=== PATIENT | female | born 1935 | race Caucasian/White ===

== ENCOUNTER → 2017-08-12 | Outpatient (CLI) | payer OTHER ==
[2017-08-12 06:46] LABS: Urine Bacteria None Seen /hpf (None Seen)
[2017-08-12 06:50] LABS: Basophils # (auto) 0.1 uL; Basophils % (auto) 1.4 % (0.0-2.0); Eosinophils # (auto) 0.3 uL; Eosinophils % (auto) 4.9 % (0.0-7.0); Hematocrit 49.5 % (36.0-46.0); Lymphocytes # (auto) 1.8 uL; Lymphocytes % (auto) 26.1 % (10.0-50.0); Mean Corpuscular Hemoglobin 30.9 pg (28.0-32.0); Mean Corpuscular Hgb Conc. 32.4 g/dL (32.0-36.0); Mean Corpuscular Volume 95.3 fL (80.0-100.0); Monocytes # (auto) 0.9 uL; Monocytes % (auto) 12.4 % (0.0-12.0); Neutrophils # (auto) 3.8 uL; Neutrophils % (auto) 55.2 % (37.0-80.0); Nucleated Red Blood Cells % 0.1 %; Platelet Count (auto) 190 10^3/uL (140-450); Red Blood Cells 5.19 10^6/uL (4.0-5.20); Red Cell Distribution Width 13.9 % (11.8-14.3); White Blood Cell 6.9 10^3/uL (4.4-10.8)
[2017-08-12 06:57] LABS: Urine Blood Normal /uL (Negative); Urine Specific Gravity 1.016 (1.001-1.035)
[2017-08-12 06:58] LABS: Urine WBC <1 /hpf (0 - 5)
[2017-08-12 06:59] LABS: Urine Mucus FEW (None Seen)
[2017-08-12 07:13] LABS: Albumin 3.8 g/dL (3.4-5.0); BUN/Creatinine Ratio 22.9; Bilirubin, Total 0.6 mg/dL (0.2-1.0); Potassium 3.7 mmol/L (3.5-5.1); Total Protein 7.1 g/dL (6.4-8.2)
== END | disposition home or self-care (01) ==
LOC: LAB 06:30
PROVIDERS: ATTEND Family Medicine
DX: E78.5 Hyperlipidemia, unspecified (principal)
CPT/HCPCS: 36415; 80053; 80061; 81001; 84443; 85025

== ENCOUNTER → 2018-04-23 | Outpatient (CLI) | payer OTHER ==
[2018-04-23 08:14] LABS: Basophils # (auto) 0.1 uL; Basophils % (auto) 1.3 % (0.0-2.0); Eosinophils # (auto) 0.3 uL; Eosinophils % (auto) 5.2 % (0.0-7.0); Hematocrit 49.5 % (36.0-46.0); Hemoglobin 16.4 g/dL (12.2-16.2); Lymphocytes # (auto) 1.4 uL; Lymphocytes % (auto) 23.1 % (10.0-50.0); Mean Corpuscular Hemoglobin 31.4 pg (28.0-32.0); Mean Corpuscular Hgb Conc. 33.2 g/dL (32.0-36.0); Mean Corpuscular Volume 94.4 fL (80.0-100.0); Monocytes # (auto) 0.7 uL; Monocytes % (auto) 11.7 % (0.0-12.0); Neutrophils # (auto) 3.4 uL; Neutrophils % (auto) 58.7 % (37.0-80.0); Nucleated Red Blood Cells % 0.1 %; Platelet Count (auto) 170 10^3/uL (140-450); Red Blood Cells 5.24 10^6/uL (4.0-5.20); Red Cell Distribution Width 14.1 % (11.8-14.3); White Blood Cell 5.9 10^3/uL (4.4-10.8)
[2018-04-23 08:51] LABS: Albumin 3.5 g/dL (3.4-5.0); BUN/Creatinine Ratio 15.2; Bilirubin, Total 0.7 mg/dL (0.2-1.0); Calcium 9.2 mg/dL (8.5-10.1); Potassium 3.3 mmol/L (3.5-5.1)
== END | disposition home or self-care (01) ==
LOC: LAB 07:18
PROVIDERS: ATTEND Nurse Practitioner
DX: E78.5 Hyperlipidemia, unspecified (principal); E55.9 Vitamin D deficiency, unspecified
CPT/HCPCS: 36415; 80053; 80061; 82306; 83036; 84443; 85025

== ENCOUNTER → 2018-10-08 | Outpatient (CLI) | payer OTHER ==
[2018-10-08 07:52] LABS: Basophils # (auto) 0.1 uL; Basophils % (auto) 1.6 % (0.0-2.0); Eosinophils # (auto) 0.3 uL; Eosinophils % (auto) 5.6 % (0.0-7.0); Hematocrit 48.9 % (36.0-46.0); Hemoglobin 16.2 g/dL (12.2-16.2); Lymphocytes # (auto) 1.3 uL; Lymphocytes % (auto) 23.9 % (10.0-50.0); Mean Corpuscular Hemoglobin 30.9 pg (28.0-32.0); Mean Corpuscular Hgb Conc. 33.2 g/dL (32.0-36.0); Mean Corpuscular Volume 93.3 fL (80.0-100.0); Monocytes # (auto) 0.6 uL; Monocytes % (auto) 11.4 % (0.0-12.0); Neutrophils # (auto) 3.1 uL; Neutrophils % (auto) 57.5 % (37.0-80.0); Platelet Count (auto) 168 10^3/uL (140-450); Red Blood Cells 5.24 10^6/uL (4.0-5.20); Red Cell Distribution Width 14.2 % (11.8-14.3); White Blood Cell 5.4 10^3/uL (4.4-10.8)
[2018-10-08 08:16] LABS: Albumin 3.4 g/dL (3.4-5.0); Potassium 3.4 mmol/L (3.5-5.1)
[2018-10-08 08:21] LABS: BUN/Creatinine Ratio 16.7; Bilirubin, Total 0.9 mg/dL (0.2-1.0); Total Protein 6.9 g/dL (6.4-8.2)
[2018-10-09 09:02] LABS: Urine Bacteria NONE SEEN /hpf (None Seen); Urine Blood Negative /uL (Negative); Urine Specific Gravity 1.014 (1.001-1.035); Urine WBC 14 /hpf (0 - 5)
== END | disposition home or self-care (01) ==
LOC: LAB 07:09
PROVIDERS: ATTEND Nurse Practitioner
DX: E78.5 Hyperlipidemia, unspecified (principal)
CPT/HCPCS: 36415; 80053; 80061; 81001; 83036; 84443; 85025

== ENCOUNTER → 2019-01-20 | Outpatient (CLI) | payer OTHER ==
[2019-01-20 08:13] LABS: Basophils # (auto) 0.1 uL; Basophils % (auto) 0.8 % (0.0-2.0); Eosinophils # (auto) 0.2 uL; Eosinophils % (auto) 2.3 % (0.0-7.0); Hematocrit 48.3 % (36.0-46.0); Hemoglobin 16.1 g/dL (12.2-16.2); Lymphocytes # (auto) 1.5 uL; Lymphocytes % (auto) 21.9 % (10.0-50.0); Mean Corpuscular Hgb Conc. 33.3 g/dL (32.0-36.0); Mean Corpuscular Volume 93.1 fL (80.0-100.0); Monocytes # (auto) 0.9 uL; Monocytes % (auto) 12.3 % (0.0-12.0); Neutrophils # (auto) 4.3 uL; Neutrophils % (auto) 62.7 % (37.0-80.0); Nucleated Red Blood Cells % 0.1 %; Platelet Count (auto) 152 10^3/uL (140-450); Red Blood Cells 5.19 10^6/uL (4.0-5.20); Red Cell Distribution Width 14.4 % (11.8-14.3); White Blood Cell 6.9 10^3/uL (4.4-10.8)
[2019-01-20 08:35] LABS: Urine Bacteria NONE SEEN /hpf (None Seen); Urine Blood Negative /uL (Negative); Urine Hyaline Cast FEW /lpf (0 - 2); Urine Specific Gravity 1.009 (1.001-1.035); Urine WBC 11 /hpf (0 - 5)
[2019-01-20 08:54] LABS: Potassium 3.2 mmol/L (3.5-5.1)
[2019-01-20 09:06] LABS: Albumin 3.6 g/dL (3.4-5.0); Calcium 9.6 mg/dL (8.5-10.1); Total Protein 6.9 g/dL (6.4-8.2)
[2019-01-20 14:56] LABS: Folate (Folic Acid) > 24.00 ng/mL (5.38-24)
== END | disposition home or self-care (01) ==
LOC: LAB 07:25
PROVIDERS: ATTEND Nurse Practitioner
DX: E78.5 Hyperlipidemia, unspecified (principal)
CPT/HCPCS: 36415; 80053; 80061; 81001; 82306; 82607; 82746; 83036; 85025

== ENCOUNTER → 2019-04-28 | Outpatient (CLI) | payer OTHER ==
[2019-04-28 07:26] LABS: Basophils # (auto) 0.1 uL; Basophils % (auto) 2.2 % (0.0-2.0); Eosinophils # (auto) 0.2 uL; Eosinophils % (auto) 4.3 % (0.0-7.0); Hematocrit 47.6 % (36.0-46.0); Hemoglobin 16.5 g/dL (12.2-16.2); Lymphocytes # (auto) 1.5 uL; Lymphocytes % (auto) 26.2 % (10.0-50.0); Mean Corpuscular Hgb Conc. 34.7 g/dL (32.0-36.0); Mean Corpuscular Volume 92.1 fL (80.0-100.0); Monocytes # (auto) 0.5 uL; Monocytes % (auto) 9.6 % (0.0-12.0); Neutrophils # (auto) 3.2 uL; Neutrophils % (auto) 57.7 % (37.0-80.0); Nucleated Red Blood Cells % 0.1 %; Platelet Count (auto) 178 10^3/uL (140-450); Red Blood Cells 5.17 10^6/uL (4.0-5.20); Red Cell Distribution Width 14.5 % (11.8-14.3); White Blood Cell 5.6 10^3/uL (4.4-10.8)
[2019-04-28 08:14] LABS: Albumin 3.6 g/dL (3.4-5.0); Calcium 9.4 mg/dL (8.5-10.1); Potassium 3.6 mmol/L (3.5-5.1)
[2019-04-28 08:17] LABS: BUN/Creatinine Ratio 20.2; Bilirubin, Total 0.9 mg/dL (0.2-1.0); Total Protein 7.1 g/dL (6.4-8.2)
== END | disposition home or self-care (01) ==
LOC: LAB 07:07
PROVIDERS: ATTEND Nurse Practitioner
DX: E78.5 Hyperlipidemia, unspecified (principal); R73.03 Prediabetes
CPT/HCPCS: 36415; 80053; 83036; 84443; 85025

== ENCOUNTER 2019-06-15 19:17 | Inpatient (IN) | payer OTHER ==
[~2019-06-15] VITALS: Ht 170.2 cm; Wt 61.0 kg
[2019-06-15] MEDS ORDERED: ALBUTEROL SULF 2.5 MG/0.5ML(0.5%) NEB SOLN NEB STA (20:32)
[2019-06-15] MEDS ORDERED: IPRATROPIUM BROM 0.5 MG/2.5ML INH SOL NEB ONE (20:45)
[2019-06-15 21:03] LABS: Basophils # (auto) 0 uL; Basophils % (auto) 0.5 % (0.0-2.0); Eosinophils # (auto) 0 uL; Hematocrit 49.2 % (36.0-46.0); Hemoglobin 16.5 g/dL (12.2-16.2); Lymphocytes # (auto) 0.6 uL; Lymphocytes % (auto) 11.2 % (10.0-50.0); Mean Corpuscular Hemoglobin 31.3 pg (28.0-32.0); Mean Corpuscular Hgb Conc. 33.5 g/dL (32.0-36.0); Mean Corpuscular Volume 93.4 fL (80.0-100.0); Monocytes # (auto) 0.7 uL; Monocytes % (auto) 12.3 % (0.0-12.0); Nucleated Red Blood Cells % 0.1 %; Platelet Count (auto) 120 10^3/uL (140-450); Red Blood Cells 5.27 10^6/uL (4.0-5.20); Red Cell Distribution Width 13.7 % (11.8-14.3); White Blood Cell 5.3 10^3/uL (4.4-10.8)
[2019-06-15 21:20] LABS: INR 1.78 (0.9-1.15); Partial Thromboplastin Time 37.6 sec (23.64-32.05)
[2019-06-15 21:26] LABS: Albumin 3.9 g/dL (3.4-5.0); Anion Gap 7 (5-15); Blood Urea Nitrogen 14 mg/dL (7-18); Carbon Dioxide 30 mmol/L (21-32); Chloride 99 mmol/L (98-107); Glucose 125 mg/dL (74-106); Potassium 3.5 mmol/L (3.5-5.1); Sodium 136 mmol/L (136-145)
[2019-06-15] MEDS ORDERED: ACETAMINOPHEN 325 MG TAB PO ONE ×6 (21:30→21:32)
[2019-06-15 21:31] LABS: Alanine Aminotransferase 33 U/L (13-56); Alkaline Phosphatase 71 U/L (45-117); Aspartate Aminotransferase 41 U/L (15-37); BUN/Creatinine Ratio 14.4; Bilirubin, Total 0.6 mg/dL (0.2-1.0); GFR African American 71 mL/min; GFR Non-African American 58 mL/min; Total Protein 7.8 g/dL (6.4-8.2)
[2019-06-15] MEDS ORDERED: ATOR40TA52 (21:45)
[2019-06-15] MEDS ORDERED: WARF5TAB71 PO (21:45)
[2019-06-15] MEDS ORDERED: HYDR12.56 (21:45)
[2019-06-15] MEDS ORDERED: LEVO125T7 (21:45)
[2019-06-15] MEDS ORDERED: METO25TA62 (21:45)
[2019-06-15] MEDS ORDERED: ALBUTEROL SULF 2.5 MG/0.5ML(0.5%) NEB SOLN ONE ×2 (21:48)
[2019-06-15] MEDS ORDERED: IPRATROPIUM BROM 0.5 MG/2.5ML INH SOL ONE ×2 (21:49)
[2019-06-15] MEDS ORDERED: SODIUM CHLORIDE 0.9% 1,000 ML IV ONE (22:15)
[2019-06-15 23:33] LABS: Urine WBC None Seen /hpf (0 - 5)
[2019-06-15 23:43] LABS: Urine Bacteria NONE SEEN /hpf (None Seen); Urine Blood Negative /uL (Negative); Urine Hyaline Cast FEW /lpf (0 - 2); Urine Mucus FEW (None Seen); Urine Specific Gravity 1.015 (1.001-1.035)
[2019-06-16] MEDS ORDERED: TEMAZEPAM 15 MG CAP PO PRN (02:45)
[2019-06-16] MEDS ORDERED: DOCUSATE SOD 100 MG CAP PO PRN (02:45)
[2019-06-16] MEDS ORDERED: ONDANSETRON HCL 4 MG/2 ML VIAL IV PRN (02:45)
[2019-06-16] MEDS ORDERED: HYDROcodone-ACET 5/325MG TAB PO PRN (02:45)
[2019-06-16] MEDS ORDERED: ALBUTEROL SULF 2.5 MG/0.5ML(0.5%) NEB SOLN NEB PRN (02:45)
[2019-06-16] MEDS ORDERED: cefTRIAXone 1GM/50ML D5W 50 ML IV ONE (02:45)
[2019-06-16] MEDS: cefTRIAXone 1GM/50ML D5W 50 ML IV SCH (03:45)
[2019-06-16 04:08] VITALS: BP 118/52
--- NOTE | 2019-06-16 04:57 | NUR ---
MS admit from ER SUKUMAR BASS admitted to tele/MS after SBAR received. Patient oriented to DARREN CAMARA, RN primary RN, unit, room, bed, and unit policies regarding patient care and visiting hours. Patient weighed by bedscale and encouraged to call if they need something. All questions and concerns addressed, patient verbalized understanding. Note:
[2019-06-16 05:00] VITALS: BP 127/51
--- NOTE | 2019-06-16 06:41 | NUR ---
URINE OUTPUT TOTAL URINARY BAG OUTPUT - 8250ML CBI IRRIGANT INFUSED - 6000ML NET URINE OUTPUT - 2250ML Addendum: 06/16/19 at 0644 by DARREN CAMARA RN RN WRONG ENTRY
[2019-06-16] MEDS ORDERED: LEVOTHYROXINE SODIUM 50 MCG TAB PO SCH (07:00)
[2019-06-16] MEDS ORDERED: LEVOTHYROXINE PO SCH ×4 (07:00)
[2019-06-16] MEDS: LEVOTHYROXINE SODIUM 25 MCG TAB PO SCH (08:34)
[2019-06-16] MEDS: LEVOTHYROXINE SODIUM 100 MCG TAB PO SCH (08:34)
[2019-06-16] MEDS: ACETAMINOPHEN 325 MG TAB PO PRN ×2 (08:36→14:57)
[2019-06-16 09:00] VITALS: BP 134/73
[2019-06-16] MEDS: FAMOTIDINE 20 MG TAB PO SCH (09:51)
[2019-06-16] MEDS: METOPROLOL SUCCINATE XL 50 MG TAB PO SCH (09:52)
[2019-06-16] MEDS ORDERED: HCTZ 25 MG TAB PO SCH (10:00)
--- NOTE | 2019-06-16 11:33 | NUR ---
Elevated Temp The patient had an elevate temp of 101.2 this morning. Gave the patient Tylenol and reassess at 0930, temp lowered slightly to 101.1. Started cooling measures and at 1030hrs, the patient's temp decreased to 99.5. Dr. Urias was informed. Will continue to monitor.
[2019-06-16] MEDS: DOXYCYCLINE 100 MG TAB/CAP PO SCH ×2 (11:49→21:36)
[2019-06-16 13:00] VITALS: BP 98/51
--- NOTE | 2019-06-16 14:59 | NUR ---
Temp Remains Elevated The patient temperature remain around 100.0. Despite ice packs I could only get her temp as low as 99.5. I found her asleep without the ice packs, checked her temp at 1450hrs, and she increased to 102.1. Gave the patient another dose of Tylenol and replaced the ice packs. Will continue to monitor.
[2019-06-16] MEDS ORDERED: WARFARIN SODIUM 1 MG TAB PO ONE (17:00)
[2019-06-16 17:45] VITALS: BP 106/62
--- NOTE | 2019-06-16 17:50 | NUR ---
Normal Temp The patient's temperature finally came down to normal range. It was 98.4 at 1700hrs. Removed the cooling measures and informed the patient we will continue to monitor regularly.
--- NOTE | 2019-06-16 18:26 | NUR ---
Respiratory note: ASSESSED PT FOR PRN MED NEB AT THIS TIME, PT DENIES SOB AT THIS TIME, NO RESP DISTRESS NOTED, NO TX INDICATED. PULSE OX 93% ON 3LNC, HR 73, RR 20, BILATERAL BS CLEAR.
--- NOTE | 2019-06-16 19:50 | NUR ---
Opening Shift Note Assumed care of patient, awake, AAOx4. No S/S of distress/SOB or pain. On 4L oxygen via nasal cannula, Ambulatory to bedside commode. Bed in lowest locked position, side rails up x2, call light within reach. Instructed on POC and to call for assist PRN, will continue to monitor for changes Q1hr and PRN.
[2019-06-16 21:00] VITALS: BP_SYST 117; BP_SYST 119; BP_DIAS 61; BP_DIAS 66
[2019-06-16] MEDS: ATORVASTATIN 20 MG TAB PO SCH (21:36)
[2019-06-17] MEDS: cefTRIAXone 1GM/50ML D5W 50 ML IV SCH (03:02)
[2019-06-17] MEDS: LEVOTHYROXINE SODIUM 25 MCG TAB PO SCH (06:31)
[2019-06-17] MEDS: LEVOTHYROXINE SODIUM 100 MCG TAB PO SCH (06:31)
[2019-06-17 07:26] LABS: INR 2.97 (0.9-1.15)
[2019-06-17 07:40] LABS: Basophils # (auto) 0 uL; Basophils % (auto) 0.5 % (0.0-2.0); Eosinophils # (auto) 0 uL; Hematocrit 44.2 % (36.0-46.0); Hemoglobin 14.8 g/dL (12.2-16.2); Lymphocytes # (auto) 0.9 uL; Mean Corpuscular Hemoglobin 31.1 pg (28.0-32.0); Mean Corpuscular Hgb Conc. 33.5 g/dL (32.0-36.0); Monocytes # (auto) 0.7 uL; Monocytes % (auto) 12.8 % (0.0-12.0); Neutrophils # (auto) 3.9 uL; Neutrophils % (auto) 70.7 % (37.0-80.0); Nucleated Red Blood Cells % 0.1 %; Platelet Count (auto) 97 10^3/uL (140-450); Red Blood Cells 4.75 10^6/uL (4.0-5.20); Red Cell Distribution Width 13.7 % (11.8-14.3); White Blood Cell 5.5 10^3/uL (4.4-10.8)
--- NOTE | 2019-06-17 07:40 | NUR ---
RECEIVED REPORT AND ASSUMED CARE OF PT. A/OX4. DENIED S/S ACUTE DISTRESS. UPDATE PT WITH POC. BED AT LOWEST POSITION. CALL LIGHT AND BELONGINGS WITHIN REACH. WILL CONT TO MONITOR.
[2019-06-17 07:47] LABS: BUN/Creatinine Ratio 17.5; Calcium 8.2 mg/dL (8.5-10.1)
[2019-06-17 07:54] LABS: Potassium 2.9 mmol/L (3.5-5.1)
[2019-06-17] MEDS ORDERED: POTASSIUM EFFERVESENT TAB 25 MEQ PO ONE (08:30)
[2019-06-17] MEDS: FAMOTIDINE 20 MG TAB PO SCH (08:51)
[2019-06-17] MEDS: METOPROLOL SUCCINATE XL 50 MG TAB PO SCH (08:52)
[2019-06-17] MEDS: DOXYCYCLINE 100 MG TAB/CAP PO SCH ×2 (08:52→21:14)
[2019-06-17 09:00] VITALS: BP 99/51
--- NOTE | 2019-06-17 09:28 | NUR ---
Respiratory note: ASSESSED PT FOR PRN TX, PT WAS AWAKE AND ALERT, NO RESP DISTRESS NOTED. HR 68, RR 18, SPO2 85% ON ROOM AIR. PT STATED SHE DID NOT FEEL SHORT OF BREATH AND SAID SHE TOOK CANNULA OFF TO EAT BREAKFAST BECAUSE IT KEPT FALLING OFF. I PLACED PT BACK ON 3L N/C. AND ADVISED PATIENT TO KEEP OXYGEN ON. PT KNOWS TO HAVE RT PAGED IF TX IS NEEDED.
[2019-06-17] MEDS ORDERED: POTASSIUM CHL 20 Meq TABLET PO ONE (10:15)
[2019-06-17 13:00] VITALS: BP 104/61
[2019-06-17 17:00] VITALS: BP 99/49
--- NOTE | 2019-06-17 18:38 | NUR ---
Respiratory note: ASSESSED PT FOR PRN MED NEB AT THIS TIME, PT DENIES SOB AT THIS TIME, NO RESP DISTRESS NOTED, NO TX INDICATED. PULSE OX 90% ON 0.5LNC, INCREASED FIO2 TO 1.5LNC AT THIS TIME. HR 89, RR 18, BILATERAL BS CLEAR.
--- NOTE | 2019-06-17 19:10 | NUR ---
PT RESTING IN BED. NO S/S ACUTE DISTRESS NOTED. ENDORSED CARE TO NIGHT NURSE.
--- NOTE | 2019-06-17 19:50 | NUR ---
Opening Shift Note Assumed care of patient, awake, AAOx4. No S/S of distress/SOB or pain. On room air and ambulatory to bedside commode. Bed in lowest locked position, side rails up x2, call light within reach. Instructed on POC and to call for assist PRN, will continue to monitor for changes Q1hr and PRN.
[2019-06-17] MEDS: ATORVASTATIN 20 MG TAB PO SCH (21:15)
[2019-06-17 22:43] VITALS: BP 119/62
[2019-06-18] MEDS: cefTRIAXone 1GM/50ML D5W 50 ML IV SCH (03:18)
[2019-06-18 05:20] VITALS: BP 115/82
[2019-06-18] MEDS: LEVOTHYROXINE SODIUM 25 MCG TAB PO SCH (07:00)
[2019-06-18] MEDS: LEVOTHYROXINE SODIUM 100 MCG TAB PO SCH (07:00)
[2019-06-18 07:20] LABS: Basophils # (auto) 0 uL; Basophils % (auto) 0.9 % (0.0-2.0); Eosinophils # (auto) 0.1 uL; Eosinophils % (auto) 1.4 % (0.0-7.0); Hematocrit 43.1 % (36.0-46.0); Hemoglobin 14.4 g/dL (12.2-16.2); Lymphocytes % (auto) 25.8 % (10.0-50.0); Mean Corpuscular Hemoglobin 31.4 pg (28.0-32.0); Mean Corpuscular Hgb Conc. 33.5 g/dL (32.0-36.0); Mean Corpuscular Volume 93.8 fL (80.0-100.0); Monocytes # (auto) 0.6 uL; Monocytes % (auto) 14.4 % (0.0-12.0); Neutrophils # (auto) 2.2 uL; Neutrophils % (auto) 57.5 % (37.0-80.0); Nucleated Red Blood Cells % 0.1 %; Platelet Count (auto) 96 10^3/uL (140-450); Red Cell Distribution Width 13.2 % (11.8-14.3); White Blood Cell 3.9 10^3/uL (4.4-10.8)
[2019-06-18 07:28] LABS: INR 2.73 (0.9-1.15)
[2019-06-18 07:29] LABS: Potassium 4.1 mmol/L (3.5-5.1)
--- NOTE | 2019-06-18 07:29 | NUR ---
Opening Shift Note Assumed care of patient, awake and alert. No S/S of distress/SOB. Pt denies having any pain at this time. Bed in lowest and locked position with side rails upx2 and call light in reach. Instructed on POC and to call for assist PRN, will continue to monitor for changes Q1hr and PRN.
[2019-06-18 07:36] LABS: BUN/Creatinine Ratio 23.4; Calcium 8.2 mg/dL (8.5-10.1)
--- NOTE | 2019-06-18 08:25 | NUR ---
Respiratory note: ASSESSED PT FOR PRN TX. NOT INDICATED AT THIS TIME. HR 76, SPO2 91% 2LNC, RR 16. BS DIMINISHED T/O. NO RESPIRATORY DISTRESS NOTED AT THIS TIME. PT KNOWS TO HAVE RT PAGED IF TX NEEDED.
[2019-06-18 09:00] VITALS: BP 92/59
[2019-06-18 09:30] VITALS: BP 113/44
[2019-06-18 09:50] VITALS: BP 113/44
[2019-06-18] MEDS ORDERED: FAM20T PO (10:00)
[2019-06-18] MEDS ORDERED: DOX100T PO (10:00)
--- NOTE | 2019-06-18 10:00 | NUR ---
DR. VELÁZQUEZ NOTIFIED THAT THE PATIENTS O2 ON RA WAS 86% AND AFTER PLACING PT ON 2L NC THE PATIENT 02 WAS 90%. MD AWARE, NO NEW ORDERS RECEIVED AT THIS TIME.
[2019-06-18] MEDS: DOXYCYCLINE 100 MG TAB/CAP PO SCH (10:30)
[2019-06-18] MEDS: FAMOTIDINE 20 MG TAB PO SCH (10:31)
[2019-06-18] MEDS: METOPROLOL SUCCINATE XL 50 MG TAB PO SCH (10:32)
[2019-06-18 11:09] VITALS: BP 111/48
--- NOTE | 2019-06-18 11:48 | NUR ---
Paged Qiana with SS regarding SS consult. Awaiting call back.
--- NOTE | 2019-06-18 12:30 | NUR ---
SPOKE TO CLEMENT WITH SS. ACCORDING TO CLEMENT, SHE IS CURRENTLY COMPLETING THE SS CONSULT.
--- NOTE | 2019-06-18 12:38 | NUR ---
Prema is aware of SS order and will be working on order
[2019-06-18 13:00] VITALS: BP 118/72
--- NOTE | 2019-06-18 13:10 | NUR ---
REPORT GIVEN TO JOLENE RUIZ.
--- NOTE | 2019-06-18 13:10 | NUR ---
REPORT RECEIVED TO ASSUME CARE OF PATIENT UNTIL PATIENT IS DISCHARGED HOME
--- NOTE | 2019-06-18 15:41 | NUR ---
assessment Patient is a 84 year old female who is alert and oriented. Prior to admission patient lived home alone and her son Kane lives on the property behind her. Patient is independent in her ADL's. Patient informed me she is able to care for her own ADLs. Per patient she will return home to her prior living arrangements post discharge and family will transport her home. Patient see's Les for her PCP. Patient has a wheelchair and fww for home use. Patient feels safe returning home on discharge. Patient has no post discharge needs identified. I informed patient she has a right to speak to a mental health social worker regarding all care. I informed patient she has a right to participate in any and all discharge planning. Patient does not have a POA and advanced directive. I have offered patient information on POA and advanced directives. I informed the patient the advantages and benefits of having an Advanced Directive. Patient verbalized understanding and agreed to discharge plan. Addendum: 06/18/19 at 1544 by Karen JASMINE Amended: Links added.
--- NOTE | 2019-06-18 15:54 | NUR ---
ELOISA RUIZ IN TO ASSUME CARE OF PATIENT
--- NOTE | 2019-06-18 15:55 | NUR ---
Received report from Sofia RUIZ. Will resume care of patient until discharge.
--- NOTE | 2019-06-18 15:58 | NUR ---
Discharge planning per consult, patient has orders for home 02. Referral was sent to [facility]. Paced a follow up call, spoke with Clement and was advised that auth was obtained and scheduled delivery time is between 4:30-7:30pm. Patient was advised. Nurse Black also updated on dc plan and 02 delivery. Addendum: 06/18/19 at 1601 by CLEMENT AVILES Amended: Links added.
[2019-06-18] MEDS ORDERED: WARFARIN SODIUM 1 MG TAB PO ONE (17:00)
--- NOTE | 2019-06-18 17:30 | NUR ---
Discharge instructions given as ordered. Encourage to follow up with PMD as instructed. All questions and concerns addressed. Patient verbalized understanding. Medication reconciliation form completed and copy given to patient. IV removed with catheter intact, pressure dressing applied. Oxygen was delivered bedside prior to discharge. Patient taken to vehicle via wheelchair with all personal belongings, accompanied by staff and family member. No distress noted at time of departure.
== END 2019-06-18 17:25 | disposition home or self-care (01) | DRG 189 ==
LOC: ER 19:20 → OVERFLOW 19:21 → EAST 06-16 04:41
PROVIDERS: ADMIT Nurse Practitioner; ATTEND Internal Medicine Nephrology
DX: J96.21 Acute and chronic respiratory failure with hypoxia (principal); G93.41 Metabolic encephalopathy; I48.20 Chronic atrial fibrillation, unspecified; R65.10 Systemic inflammatory response syndrome (SIRS) of non-infectious origin without acute organ dysfunction; D69.6 Thrombocytopenia, unspecified; I10 Essential (primary) hypertension; E07.9 Disorder of thyroid, unspecified; E78.5 Hyperlipidemia, unspecified; M19.90 Unspecified osteoarthritis, unspecified site; E78.00 Pure hypercholesterolemia, unspecified; Z79.01 Long term (current) use of anticoagulants; Z86.73 Personal history of transient ischemic attack (TIA), and cerebral infarction without residual deficits; Z79.899 Other long term (current) drug therapy
CPT/HCPCS: 36415; 36600; 70450; 71045; 80048; 80053; 81001; 82805; 83605; 83880; 84484; 85025; 85610; 85730; 87040; 87086; 93005; G0378; J0696

== ENCOUNTER → 2019-09-29 | Outpatient (CLI) | payer OTHER ==
[~2019-09-29] MED LIST: ATOR40TA52; DOX100T PO; FAM20T PO; LEVO125T7; METO25TA93; WARF5TAB71 PO
[2019-09-29 08:01] LABS: Basophils # (auto) 0.1 10 ^3/uL (0-0.2); Basophils % (auto) 1.2 % (0.0-2.0); Eosinophils # (auto) 0.3 10 ^3/uL (0-0.8); Eosinophils % (auto) 5.2 % (0.0-7.0); Hematocrit 47.2 % (36.0-46.0); Hemoglobin 15.8 g/dL (12.2-16.2); Lymphocytes # (auto) 1.5 10 ^3/uL (0.4-5.4); Lymphocytes % (auto) 27.7 % (10.0-50.0); Mean Corpuscular Hemoglobin 31.3 pg (28.0-32.0); Mean Corpuscular Hgb Conc. 33.5 g/dL (32.0-36.0); Mean Corpuscular Volume 93.4 fL (80.0-100.0); Monocytes # (auto) 0.6 10 ^3/uL (0-1.3); Monocytes % (auto) 11.2 % (0.0-12.0); Neutrophils % (auto) 54.7 % (37.0-80.0); Nucleated Red Blood Cells % 0.1 %; Platelet Count (auto) 172 10^3/uL (140-450); Red Blood Cells 5.06 10^6/uL (4.0-5.20); Red Cell Distribution Width 14.3 % (11.8-14.3); Urine Bacteria FEW /hpf (None Seen); Urine Blood Negative /uL (Negative); Urine Specific Gravity 1.014 (1.001-1.035); Urine WBC 5 /hpf (0 - 5); White Blood Cell 5.6 10^3/uL (4.4-10.8)
[2019-09-29 08:40] LABS: Albumin 3.4 g/dL (3.4-5.0); Calcium 9.3 mg/dL (8.5-10.1); Potassium 3.5 mmol/L (3.5-5.1)
[2019-09-29 08:47] LABS: BUN/Creatinine Ratio 20.5; Bilirubin, Total 0.6 mg/dL (0.2-1.0); Total Protein 7.3 g/dL (6.4-8.2)
== END | disposition home or self-care (01) ==
LOC: LAB 07:10
PROVIDERS: ATTEND Nurse Practitioner
DX: Z00.00 Encounter for general adult medical examination without abnormal findings (principal); E78.5 Hyperlipidemia, unspecified; R73.9 Hyperglycemia, unspecified
CPT/HCPCS: 36415; 80053; 80061; 81001; 83036; 84443; 85025

== ENCOUNTER → 2021-01-18 | Outpatient (CLI) | payer OTHER ==
[~2021-01-18] MED LIST changes: -FAM20T PO; +FAMO20TA10 PO
[2021-01-18 07:59] LABS: Basophils # (auto) 0.1 10 ^3/uL (0-0.2); Basophils % (auto) 2.6 % (0.0-2.0); Eosinophils # (auto) 0.3 10 ^3/uL (0-0.8); Eosinophils % (auto) 5.7 % (0.0-7.0); Hemoglobin 14.5 g/dL (12.2-16.2); Lymphocytes # (auto) 1.1 10 ^3/uL (0.4-5.4); Lymphocytes % (auto) 22.4 % (10.0-50.0); Mean Corpuscular Hemoglobin 31.1 pg (28.0-32.0); Mean Corpuscular Hgb Conc. 33.7 g/dL (32.0-36.0); Mean Corpuscular Volume 92.5 fL (80.0-100.0); Monocytes # (auto) 0.6 10 ^3/uL (0-1.3); Neutrophils # (auto) 2.8 10 ^3/uL (1.6-8.6); Neutrophils % (auto) 57.3 % (37.0-80.0); Platelet Count (auto) 165 10^3/uL (140-450); Red Blood Cells 4.65 10^6/uL (4.0-5.20); Red Cell Distribution Width 13.5 % (11.8-14.3)
[2021-01-18 08:32] LABS: Potassium 3.9 mmol/L (3.5-5.1)
[2021-01-18 08:42] LABS: Albumin 3.5 g/dL (3.4-5.0); BUN/Creatinine Ratio 19.4; Bilirubin, Total 0.8 mg/dL (0.2-1.0); Calcium 9.4 mg/dL (8.5-10.1); Total Protein 6.9 g/dL (6.4-8.2)
[2021-01-19 07:54] LABS: Urine Bacteria MANY /hpf (None Seen); Urine Blood Negative /uL (Negative); Urine Hyaline Cast MOD /lpf (0 - 2); Urine Specific Gravity 1.013 (1.001-1.035); Urine WBC 80 /hpf (0 - 5)
== END | disposition home or self-care (01) ==
LOC: LAB 07:07
PROVIDERS: ATTEND Nurse Practitioner
DX: E78.5 Hyperlipidemia, unspecified (principal); E30.9 Disorder of puberty, unspecified
CPT/HCPCS: 36415; 80053; 80061; 81001; 84443; 85025; 85049

== ENCOUNTER → 2021-05-08 | Outpatient (CLI) | payer OTHER ==
[2021-05-08 09:30] LABS: Basophils # (auto) 0.1 10 ^3/uL (0-0.2); Basophils % (auto) 1.1 % (0.0-2.0); Eosinophils # (auto) 0.3 10 ^3/uL (0-0.8); Eosinophils % (auto) 4.7 % (0.0-7.0); Hematocrit 42.1 % (36.0-46.0); Hemoglobin 13.7 g/dL (12.2-16.2); Lymphocytes # (auto) 1.5 10 ^3/uL (0.4-5.4); Lymphocytes % (auto) 21.7 % (10.0-50.0); Mean Corpuscular Hemoglobin 29.9 pg (28.0-32.0); Mean Corpuscular Hgb Conc. 32.5 g/dL (32.0-36.0); Monocytes # (auto) 0.6 10 ^3/uL (0-1.3); Monocytes % (auto) 8.9 % (0.0-12.0); Neutrophils # (auto) 4.4 10 ^3/uL (1.6-8.6); Neutrophils % (auto) 63.6 % (37.0-80.0); Red Blood Cells 4.57 10^6/uL (4.0-5.20); Red Cell Distribution Width 13.6 % (11.8-14.3); White Blood Cell 6.9 10^3/uL (4.4-10.8)
[2021-05-08 10:30] LABS: Potassium 3.8 mmol/L (3.5-5.1)
[2021-05-08 10:43] LABS: Albumin 3.4 g/dL (3.4-5.0); BUN/Creatinine Ratio 19.3; Bilirubin, Total 0.5 mg/dL (0.2-1.0); Calcium 9.5 mg/dL (8.5-10.1); Total Protein 6.5 g/dL (6.4-8.2)
== END | disposition home or self-care (01) ==
LOC: LAB 08:49
PROVIDERS: ATTEND Nurse Practitioner
DX: I10 Essential (primary) hypertension (principal); E03.9 Hypothyroidism, unspecified; E78.5 Hyperlipidemia, unspecified
CPT/HCPCS: 36415; 80053; 80061; 84443; 85025

== ENCOUNTER → 2022-01-01 | Outpatient (CLI) | payer OTHER ==
[2022-01-01 11:40] LABS: Folate (Folic Acid) > 24.00 ng/mL (5.38-24)
== END | disposition home or self-care (01) ==
LOC: LAB 10:47
PROVIDERS: ATTEND Psychiatry & Neurology Neurology
DX: R41.3 Other amnesia (principal)
CPT/HCPCS: 82607; 82746